=== PATIENT | female | born 1995 | race Caucasian/White ===

== ENCOUNTER 2017-02-12 10:10 | Observation (INO) | payer MEDICAID ==
[~2017-02-12] VITALS: Ht 144.8 cm; Wt 62.6 kg
[~2017-02-12 10:10] MED LIST: DOCU-138 PO; IBUP-779 PO
[2017-02-12 12:06] LABS: BASOPHILS % 0.3 % (0.0-2.0); EOSINOPHILS % 0.1 % (0.0-5.0); HEMATOCRIT. 34.1 % (36.0-48.0); HEMOGLOBIN. 12.1 g/dL (12.0-16.0); LYMPHOCYTES % 14.1 % (20.0-50.0); MEAN CORPUSCULAR HEMOGLOBIN 31.5 pg (28.0-32.0); MEAN CORPUSCULAR HGB CONC 35.3 g/dL (31.0-37.0); MEAN CORPUSCULAR VOLUME 89.1 fL (81.0-99.0); MEAN PLATELET VOLUME 8.4 fl (7.4-10.4); MONOCYTES % 5.2 % (2.0-8.0); NEUTROPHILS % 80.3 % (40.0-76.0); PLATELET 169 x1000/uL (130-400); RED BLOOD CELL COUNT 3.83 mill/uL (4.2-5.4); RED CELL DISTRIBUTION WIDTH 13.3 % (11.6-14.6); WHITE BLOOD COUNT 10.3 x1000/uL (4.5-11.0)
[2017-02-12 12:12] LABS: CLARITY URINE CLOUDY (CLEAR); COLOR URINE YELLOW (YELLOW); GLUCOSE URINE NEGATIVE (NEGATIVE); KETONES URINE TRACE (NEGATIVE); LEUKOCYTE ESTERASE URINE 3+ (NEGATIVE); NITRITE URINE POSITIVE (NEGATIVE); OCCULT BLOOD URINE TRACE (NEGATIVE); PH URINE 7.5 (4.5-8.0); PROTEIN URINE NEGATIVE (NEGATIVE); SPECIFIC GRAVITY URINE 1.009 (1.005-1.030)
[2017-02-12 12:30] LABS: BACTERIA URINE 4+; RBC URINE 0-2 /hpf (0-2); SQUAMOUS EPITHELIAL CELL URINE 2+ /lpf (RARE/1+); WBC URINE 25-50 /hpf (0-2)
[2017-02-12] MEDS ORDERED: PREN-88 PO (18:14)
== END 2017-02-12 12:00 | disposition left against medical advice (07) ==
LOC: L&D 10:10
PROVIDERS: ADMIT Obstetrics & Gynecology; ATTEND Obstetrics & Gynecology
DX: O26.893 Other specified pregnancy related conditions, third trimester (principal); R10.2 Pelvic and perineal pain; Z3A.31 31 weeks gestation of pregnancy
CPT/HCPCS: 36415; 76805; 76818; 81001; 85025; 85379; 99281; G0378

== ENCOUNTER 2023-06-06 14:07 | Emergency (ER) | payer OTHER ==
[~2023-06-06] VITALS: Ht 152.4 cm; Wt 81.0 kg
[2023-06-06 14:28] VITALS: BP 132/85; PULSE 77; RESP 20; TEMP 98.1; O2SAT 98
== END 2023-06-06 15:41 | disposition left against medical advice (07) ==
LOC: ER 14:07
DX: Z53.21 Procedure and treatment not carried out due to patient leaving prior to being seen by health care provider (principal)
CPT/HCPCS: 99281